=== PATIENT | male | born 1950 | race Caucasian/White ===

== ENCOUNTER → 2019-04-26 | Outpatient (CLI) | payer OTHER ==
[~2019-04-26] MED LIST: AMARYL2 MG PO; ASPIR 8181 MG PO; ATORVASTATIN CA20 MG PO; CARVEDILOL6.25 MG; CARVEDILOL6.25 MG PO; CEFUROXIME250 MG PO; CEFUROXIME500 MG PO; CLONAZEPAM 0.50.5 M1 PO; COLACE100 MG PO; DIGOXIN125 MCG PO; DIGOXIN250 MCG PO; ELIQUIS5 MG PO; GLUCOPHAGE1000 MG PO; HUMULIN 70100 UNIT/2 SUBQ; IRON325 PO; LEVAQUIN 500 M500 M1 PO; LIPITOR 20 MG T20 M1 PO; METFORMIN HCL500 MG PO; OMEPRAZOLE40 MG PO; PHENERGAN 25 MG25 M1 PO; PRADAXA75 MG PO; SORINE 80 MG TA80 M1 PO; SORINE 80 MG TA80 MG PO; TOUJEO MAX300 UNIT/1 SQ; TRAMADOL 50 MG50 MG PO; TRANSDERM-SCOP1 EACH TRANSDERM; TRAZODONE HCL50 MG PO; VICTOZA0.6 MG/0.1 SQ; XARELTO20 MG PO
== END ==
LOC: SJCVC 11:43
DX: I48.92 Unspecified atrial flutter (principal); I44.30 Unspecified atrioventricular block; R94.31 Abnormal electrocardiogram [ECG] [EKG]; I48.19 Other persistent atrial fibrillation; I25.119 Atherosclerotic heart disease of native coronary artery with unspecified angina pectoris; D50.8 Other iron deficiency anemias; E78.5 Hyperlipidemia, unspecified; E11.9 Type 2 diabetes mellitus without complications; E66.01 Morbid (severe) obesity due to excess calories; Z79.82 Long term (current) use of aspirin; Z79.899 Other long term (current) drug therapy; Z79.4 Long term (current) use of insulin; Z98.61 Coronary angioplasty status; Z87.891 Personal history of nicotine dependence